=== PATIENT | female | born 1995 | race Hispanic/Latino ===

== ENCOUNTER → 2017-01-02 | Outpatient (CLI) | payer OTHER | LOC: LAB 11:28 | PROVIDERS: ATTEND Obstetrics & Gynecology Gynecology | DX: N91.2 Amenorrhea, unspecified (principal) | CPT/HCPCS: 36415; 84703 ==

== ENCOUNTER → 2017-01-24 | Outpatient (CLI) | payer OTHER ==
[2017-01-24 10:56] LABS: BASOPHILS # (AUTO) 0.03 10*3/UL; BASOPHILS % (AUTO) 0.3 % (0-1); EOSINOPHILS % (AUTO) 0.6 % (0-8); HEMATOCRIT 38.5 % (37.0-47.0); HEMOGLOBIN 13.2 g/dL (12.0-16.0); IMM GRAN % (AUTO) 0.3 % (0-5); IMM GRAN# (AUTO) 0.03 10*3/UL; LYMPHOCYTES # (AUTO) 1.53 10*3/uL; LYMPHOCYTES % (AUTO) 14.4 % (10-50); MEAN CORPUSCULAR HEMOGLOBIN 30.7 PG (27-31); MEAN CORPUSCULAR HGB CONC 34.3 g/dL (33-37); MEAN PLATELET VOLUME 10.3 FL (7.4-12.2); MONOCYTES # (AUTO) 0.57 10*3/UL (0.3-0.8); MONOCYTES % (AUTO) 5.4 % (5-15); NEUTROPHILS # (AUTO) 8.43 10*3/UL; RDW COEFFICIENT OF VARIATION 12.6 % (11.5-14.5); WHITE BLOOD COUNT 10.65 10^3/uL (4.8-10.8)
[2017-01-24 10:59] LABS: PLATELET MORPHOLOGY COMMENT NORMAL MORPHOLOGY (NORM)
[2017-01-24 11:00] LABS: PRENATAL QUESTION YES (Y)
[2017-01-24 11:44] LABS: HIV ANTIBODY NEGATIVE (N); HIV-1 P24 ANTIGEN NEGATIVE (N)
[2017-01-29 12:44] LABS: HEP B SURFACE AG Negative (Negative)
[2017-01-29 13:44] LABS: RUBELLA IGG INDEX 3.2 (()); SYPHILIS IGG WITH REFLEX Negative (Negative)
== END ==
LOC: MOB LAB 09:46
PROVIDERS: ATTEND Student in an Organized Health Care Education/Training Program
DX: Z34.81 Encounter for supervision of other normal pregnancy, first trimester (principal); Z3A.09 9 weeks gestation of pregnancy
CPT/HCPCS: 36415; 80081; 86900; 86901; 87088

== ENCOUNTER → 2017-01-30 | Outpatient (CLI) | payer OTHER ==
--- NOTE | 2017-01-30 19:35 | DI ---
OBSTETRICAL ULTRASOUND, 01/30/2017 8:52 AM: Clinical History: Verify dates. Previous Exam: None at this facility for this . LMP: 11/22/2016. There is a single live IUP currently in unstable position. Amnionic fluid content is normal. The plac enta is anterior corpus and Grade 0. heart rate is between 179-185 beats/minute and regular. Matthew th ovaries are normal. The yolk sac is visualized. CRL measurement is 25 mm. This measurement corresp onds to an EGA value of 9 weeks 2 days. The US EDC is 09/02/2017. EDC by LMP is 08/29/2017. Readin. Single live fetus with unstable presentation and normal amniotic fluid content. Placenta is anter ior corpus and grade 0. 2. The composite EGA is 9 weeks 2 days with an ultrasound EDC of 09/02/2017.
== END ==
LOC: US 08:48
PROVIDERS: ATTEND Student in an Organized Health Care Education/Training Program
DX: Z36 Encounter for antenatal screening of mother (principal)
CPT/HCPCS: 76801

== ENCOUNTER → 2017-04-15 | Outpatient (CLI) | payer OTHER ==
--- NOTE | 2017-04-15 14:53 | DI ---
US OB GTE 14 WEEKS,04/15/2017 9:15 AM: Clinical History: anatomic survey Previous Exam: None at this facility. Findings: Multiple grayscale and color Doppler sonographic images are obtained through the pelvis demonstrating a single live intrauterine gestation in vertex presentation. Amniotic fluid level is within normal l imits. There is normal motion of the limbs. Normal detected Doppler heart tones measure 134 beats per minute. There are normal respirations identified. The placenta is posterior without visible defects. anatomic survey is within normal limits. Estimated gestational age is determined by a composite of biparietal diameter, head circumference, ab dominal circumference and femur length yielding an estimated gestational age by ultrasound of 20 week s zero days. Estimated weight is 334 g (53rd percentile). Impression: Single live intrauterine gestation with size equal to dates. Unremarkable survey.
== END ==
LOC: US 09:12
PROVIDERS: ATTEND Student in an Organized Health Care Education/Training Program
DX: Z36 Encounter for antenatal screening of mother (principal); Z3A.20 20 weeks gestation of pregnancy
CPT/HCPCS: 76805

== ENCOUNTER → 2017-06-11 | Outpatient (CLI) | payer OTHER ==
[2017-06-11 15:04] LABS: HEMATOCRIT 36.3 % (37.0-47.0); HEMOGLOBIN 12.2 g/dL (12.0-16.0); MEAN CORPUSCULAR HEMOGLOBIN 31.1 PG (27-31); MEAN CORPUSCULAR HGB CONC 33.6 g/dL (33-37); MEAN CORPUSCULAR VOLUME 92.6 FL (81-99); MEAN PLATELET VOLUME 9.5 FL (7.4-12.2); RED BLOOD COUNT 3.92 10^6/uL (4.20-5.40)
== END ==
LOC: LAB 13:42
PROVIDERS: ATTEND Obstetrics & Gynecology
DX: Z36 Encounter for antenatal screening of mother (principal); Z3A.28 28 weeks gestation of pregnancy
CPT/HCPCS: 36415; 82950; 85027

== ENCOUNTER 2017-08-26 06:04 | Inpatient (IN) ==
[~2017-08-26 06:04] MED LIST: Lactated Ringers 2,000 ML PRIMARY IV ONE
[2017-08-26] MEDS: Lactated Ringers 1,000 ML PRIMARY IV ONE ×2 (06:40→07:15)
[2017-08-26] MEDS ORDERED: CITRIC ACID/SODIUM CITRATE 30 ML CUP PO ONE (06:52)
[2017-08-26] MEDS ORDERED: CefOXitin Inj 2 GM in Sodium Chloride 0.9% 100 ML IV ONE (06:52)
[2017-08-26] MEDS ORDERED: Famotidine Inj 20 MG in Normal Saline Flush 10 ML IVP ONE (06:52)
[2017-08-26] MEDS ORDERED: NORMAL SALINE 10 ML SYRINGE FLUSH IVP PRN ×3 (06:52→12:55)
[2017-08-26] MEDS ORDERED: Metoclopramide Inj 10 MG/2 ML VIAL IV ONE (06:52)
[2017-08-26] MEDS ORDERED: LIDOCAINE W/ SODIUM BICARB 0.5 ML SYR SUBD PRN (06:52)
[2017-08-26 07:00] LABS: Hematocrit [HCT] 38.2 % (37.0-47.0); Hemoglobin [HGB] 12.7 g/dL (12.0-16.0); MEAN CORPUSCULAR HEMOGLOBIN 30.5 PG (27-31); MEAN CORPUSCULAR HGB CONC 33.2 g/dL (33-37); MEAN CORPUSCULAR VOLUME 91.6 FL (81-99); MEAN PLATELET VOLUME 10.4 FL (7.4-12.2); RED BLOOD COUNT 4.17 10^6/uL (4.20-5.40)
[2017-08-26] MEDS ORDERED: Lactated Ringers 1,000 ML PRIMARY IV SCH (07:00)
[2017-08-26] MEDS ORDERED: Oxytocin 20 Units + LR 20 UNIT/1,000 ML BAG IV SCH ×2 (07:00→12:55)
[2017-08-26] MEDS ORDERED: MORPHINE SULFATE/PF 10 MG/10 ML AMPULE ONE (08:50)
[2017-08-26] MEDS ORDERED: ePHEDrine Inj 50 MG/ML AMP ONE (09:11)
[2017-08-26] MEDS ORDERED: OXYTOCIN 10 UNIT/1 ML ONE (09:12)
[2017-08-26] MEDS ORDERED: ONDANSETRON 4 MG/2 ML VIAL ONE ×2 (09:38→12:22)
[2017-08-26] MEDS ORDERED: HYDROmorphone 2 MG/1 ML IVP PRN (09:41)
[2017-08-26] MEDS ORDERED: Prochlorperazine Edisylate Inj 10mg/2ml vial IVP PRN (09:41)
--- NOTE | 2017-08-26 09:41 | CRNA.PROCE ---
Central Neuraxis Block Placemt - - Safety Measures: Time Out Taken - - Type of Block: Subarachnoid Reason for Block: Surgical Moniters Used During Block: EKG, SPO2, NIBP Positioning: Sitting Skin Prep Used: ChloroPrep Draped: No Skin Infiltration - Enter Amount Used in Comment Field: 1% Xylocaine (mL): Yes ( skinwheal) Spinal Needle Used: 25 Rita 80 mm Local Anesthetic - Enter Amount Used in Comment Field: 0.75 % Bupivacaine with Dextrose (ml): Yes (15mg) Additive Used - Enter Amount Used in Comment Field: Preservative Free Morphine ( mg): Yes (150mcg) Bioclusive Dressing Applied: No - - Additional Details: positive CSF, pos birefringence Anesthesia Time - Other Weight: 61.326 kg Height: 5 ft Body Mass Index (BMI): 26.4
[2017-08-26] MEDS ORDERED: KETOROLAC 30 MG/1 ML VIAL ONE (10:06)
--- NOTE | 2017-08-26 10:56 | CRNA.PROGR ---
Anesthesia Time - - Start date: 08/26/17 End date: 08/26/17 - Procedure/Recovery Time Anesthesia : Time In: 09:01 Anesthesia : Time Out: 10:43 Anesthesia : Total Time: 102 - Total Anesthesia Time Total Anesthesia Time (minutes): 102 - Other Weight: 61.326 kg Height: 5 ft Body Mass Index (BMI): 26.4 Obstetrics: C/S anesthesia only
[2017-08-26] MEDS ORDERED: D5-LR 1,000 ML PRIMARY IV ONE (12:04)
[2017-08-26] MEDS: D5-LR 1,000 ML PRIMARY IV SCH ×2 (12:05→20:30)
[2017-08-26] MEDS: ONDANSETRON 4 MG/2 ML VIAL IVP PRN ×2 (12:20→19:50)
[2017-08-26] MEDS ORDERED: Nalbuphine Inj 20 MG/ML Ampule IVP PRN (12:55)
[2017-08-26] MEDS ORDERED: diphenhydrAMINE 25 MG CAPSULE PO PRN (12:55)
[2017-08-26] MEDS ORDERED: CALCIUM CARBONATE 500 MG (TUMS) CHEWABLE TABLET PO PRN (12:55)
[2017-08-26] MEDS ORDERED: LANOLIN HPA 40 GM TUBE TOPICAL PRN (12:55)
[2017-08-26] MEDS ORDERED: oxyCODONE-ACETAMINOPHEN 5-325 TAB PO PRN (12:55)
[2017-08-26] MEDS ORDERED: diphenhydrAMINE 50 MG/1 ML VIAL IV PRN (12:55)
[2017-08-26] MEDS ORDERED: Naloxone Inj 0.01 MG, Sodium Chloride 0.9% vial 1 ML IVP PRN ×2 (12:55)
[2017-08-26] MEDS ORDERED: Famotidine Inj 20 MG in Normal Saline Flush 10 ML IVP PRN (12:55)
--- NOTE | 2017-08-26 13:17 | OB.OP.NOTE ---
Operative Report Surgeon: Beck Lewis Delivery Architect: Jim Mancini MD Anesthesia Type: Regional Anesthesia Provider: Raúl Owens CRNA Surgery Date: 08/26/17 Preoperative Diagnosis: at 39 weeks gestation. H/o 4th degree tear Postoperative Diagnosis: Normal uterus, ovaries, fallopian tubes. 6lb 14oz male infant, apgars 8,9 Procedure: primary LTCS Estimated Blood Loss (mL): 700 Fluids: 1L LR Complications: none apparent Indications for the Procedure: History of 4th degree tear with first delivery Description of Procedure: The patient was taken to the operating room where spinal anesthesia was found to be adequate. Simms catheter was placed. She was then prepared and draped in the normal sterile fashion in the dorsal supine position with a leftward tilt. A Pfannenstiel skin incision was then made with the scalpel and carried through to the underlying layer of fascia with Bovie. The fascia was incised in the midline and the incision extended laterally with the Bovie. The superior aspect of the fascial incision was then grasped with Juana clamps, elevated and the underlying rectus muscles dissected off bluntly. Attention was then turned to the inferior aspect of this incision which in a similar fashion was grasped with Juana clamps and the rectus muscles dissected off both bluntly and with the Bovie. The rectus muscle was then in the midline , and the peritoneum identified, tented up, and entered in blunt fashion. The peritoneal incision was then extended superiorly and inferiorly with good visualization of the bladder. The Brendan retractor was then inserted and the vesicouterine peritoneum was identified. The lower uterine segment incised in the transverse fashion with the scalpel. The uterine incision was then extended laterally blunt fashion. The infant's head was delivered atraumatically. The nose and mouth were suctioned with the bulb suction. Cord clamping was delayed approx 30 seconds and then clamped and cut. The was handed off to the awaiting nurse. Cord gases and cord blood were sent for analysis. The placenta was then removed manually; the uterus exteriorized, and cleared of all clots and debris. The uterine incision was repaired with 0 Vicryl in a running, locked fashion. A second layer of the same suture was used to obtain excellent hemostasis. The peritoneal cavity was then copiously irrigated with warm saline. The uterus was returned to the abdomen. The paracolic gutters were copiously irrigated with warm saline and a second look at the uterus incision continued to reveal excellent hemostasis. The peritoneum was closed with 3-0 Vicryl. The fascia reapproximated with 0 vicryl in a running fashion. The subcutaneous space was irrigated copiously with warm saline and then closed first with 3-0 Vicryl and then more superficially with stratafix absorbable sutures. The skin was reapproximated with Steri-Strips and a Silverlon dressing applied. Fundal massage was completed with no clots in vaginal vault. The patient tolerated the procedure well. Sponge, lap, and needle counts were correct x2. Mefoxin was given preoperatively less than one hour prior to incision time. The patient was taken to the recovery room in stable condition. Plan: Patient and baby tolerated procedure well, mom to PACU in stable condition. Admit for routine cares.
[2017-08-26] MEDS: KETOROLAC 15 MG/1 ML VIAL IVP PRN ×2 (17:02→23:03)
[2017-08-27] MEDS: KETOROLAC 15 MG/1 ML VIAL IVP PRN ×2 (04:54→12:40)
[2017-08-27 05:34] LABS: Hematocrit [HCT] 29.9 % (37.0-47.0); Hemoglobin [HGB] 9.8 g/dL (12.0-16.0); MEAN CORPUSCULAR HEMOGLOBIN 30.5 PG (27-31); MEAN CORPUSCULAR HGB CONC 32.8 g/dL (33-37); MEAN CORPUSCULAR VOLUME 93.1 FL (81-99); MEAN PLATELET VOLUME 10.3 FL (7.4-12.2); RED BLOOD COUNT 3.21 10^6/uL (4.20-5.40)
[2017-08-27] MEDS: Senna/Docusate Tab 1 TAB TAB PO SCH ×2 (09:31→21:08)
[2017-08-27] MEDS: Prenatal Multivitamin Tab 1 TAB TAB PO SCH (09:31)
--- NOTE | 2017-08-27 10:43 | OB.PROGRES ---
Subjective Post Op Day: 1 Pain Management: toradol, last dose this morning Walker Catheter: No Diet: Regular (but has had emesis) Iron Feeding Method: Exculsively Ambulating: Yes Concerns / Additional Information: Demi was d/c'd around 0500, she has been up and ambulating. Voided 500 cc since walker was pulled. Did have some emesis with lunch and dinner yesterday. Has not required anything for pain other than toradol (recieved duramorph in spinal). Breast feeding. States she is doing well, feels much better than she expected too. Objective - General General Appearance: POSITIVE: No Acute Distress, Cooperative - Cardiovacular Cardiovascular Exam: POSITIVE: RRR Edema: No Pedal Edema Extremities: Negative Patrick's - Bilaterally - Respiratory Respiratory Exam: POSITIVE: Clear to Auscultation - Bilaterally, Breathing Non Labored - Abdomen Bowel Sounds: Hypoactive Abdominal Wound Assessment: Silverlone Dressing - Fundus/Lochia/Perineum Uterus Consistency: Firm Uterus Position: POSITIVE: At Umbilicus Assesstment / Plan (1) Status post primary low transverse section Current Visit: Yes Status: Acute Support Text: 22 yo G4 now P2022, POD 1 s/p primary LTCS (h/o 4th degree tear) -Pain well controlled currently, transition to po pain meds -Breast feeding, doing well. contaminated land consultant to come by today. -Postop anemia - Hg 12.7->9.7, asymptomatic -Leukocytosis this morning to 19k, but vital signs stable, no concerning symptoms. Will monitor closely, recheck CBC in am. -Anticipate d/c home tomorrow.
[2017-08-27] MEDS: IBUPROFEN 800 MG TABLET PO PRN (17:50)
--- NOTE | 2017-08-27 18:32 | CRNA.PROGR ---
Anesthesia Note - Progress Notes Anesthesia Progress Note: Pt sitting up nursing her new born, She has been up ambulating and into the shower. She is tolerating a regular diet. She states that her pain is well under control. She denies any residual problems from the SAB. Current VS are stable. Vital Signs - Last Taken Temperature 98.0 F 08/27/17 17:00 Pulse Rate 106 H 08/27/17 17:00 Respiratory Rate 16 08/27/17 17:00 Blood Pressure 110/66 08/27/17 17:00 Pulse Ox 98 08/27/17 17:00
[2017-08-28 00:30] VITALS: RESP 16
[2017-08-28] MEDS: IBUPROFEN 800 MG TABLET PO PRN ×2 (00:30→08:59)
[2017-08-28 05:17] VITALS: O2SAT 98
[2017-08-28 05:30] LABS: BASOPHILS # (AUTO) 0.02 10*3/UL; BASOPHILS % (AUTO) 0.1 % (0-1); EOSINOPHILS # (AUTO) 0.11 10*3/UL; EOSINOPHILS % (AUTO) 0.8 % (0-8); Hematocrit [HCT] 29.3 % (37.0-47.0); Hemoglobin [HGB] 9.6 g/dL (12.0-16.0); LYMPHOCYTES # (AUTO) 2.81 10*3/uL; MEAN CORPUSCULAR HEMOGLOBIN 30.9 PG (27-31); MEAN CORPUSCULAR HGB CONC 32.8 g/dL (33-37); MEAN CORPUSCULAR VOLUME 94.2 FL (81-99); MEAN PLATELET VOLUME 10.6 FL (7.4-12.2); MONOCYTES # (AUTO) 1.49 10*3/UL (0.3-0.8); MONOCYTES % (AUTO) 10.8 % (5-15); NEUTROPHILS # (AUTO) 9.36 10*3/UL; NEUTROPHILS % (AUTO) 67.6 % (50-80); RED BLOOD COUNT 3.11 10^6/uL (4.20-5.40)
[2017-08-28 05:35] LABS: PLATELET MORPHOLOGY COMMENT NORMAL MORPHOLOGY (NORM); RBC MORPHOLOGY COMMENT NORMAL MORPHOLOGY (NORM); WBC MORPHOLOGY COMMENT NORMAL MORPHOLOGY (NORM)
--- NOTE | 2017-08-28 07:55 | DCSUMMARY ---
Hospitalization Summary Admit Date: 08/26/17 Discharge Date: 08/28/17 Primary Diagnosis:: s/p primary LTCS Secondary Diagnosis:: 22 yo G4 now P2022 delivered a TAGA male infant at 39 0/7 weeks gestation via primary LTCS for h/o 4th degree perineal laceration Primary Surgery and Date: 08/26/17 Delivery Type: Hospital Course: 22 yo G4 now P2 admitted at 39 0/7 for scheduled primary LTCS. was uncomplicated. Postop course uncomplicated. / Postop Complications: none apparent Complications: none apparent Exam - Vitals Vital Signs: Vital Signs Temperature 97.9 F Temperature Source Oral Pulse Rate [Pulse Oximeter] 98 Pulse Rate [Apical] 93 Pulse Rate 84 Respiratory Rate 16 Blood Pressure [Left Arm] 82/53 Blood Pressure 120/79 Pulse Ox 98 Oxygen Flow Rate 1 Oxygen Delivery Method Room Air Height 5 ft Weight 135 lb 3.2 oz - General General Appearance: No Acute Distress, Cooperative - Head Head Exam: Normal Inspection - Eye Eye Exam: POSITIVE: Normal Appearance - ENT ENT Exam: POSITIVE: Normal Exam - Neck Neck Exam: Normal Inspection - Respiratory Respiratory Exam: POSITIVE: Clear to Auscultation - Bilaterally, Breathing Non Labored - Cardiovascular Cardiovascular Exam: POSITIVE: RRR - GI/Abdominal GI/Abdominal Exam: POSITIVE: Normal Bowel Sounds Additional GI/Abdominal Exam Details: U-1, firm - Extremities Extremities Exam: POSITIVE: No Edema Present - Neurological Neurological Exam: POSITIVE: Alert, Oriented x 3 - Psychiatric Psychiatric Exam: POSITIVE: Normal Affect, Normal Mood - Integumentary Integumentary Exam: POSITIVE: Normal Color Patient Problems - Patient Problem List (1) Status post primary low transverse section Current Visit: Yes Status: Acute Code(s): Z98.891 - History of uterine scar from previous surgery Support Text: POD 2. -Pain well controlled with po ibuprofen -Breast feeding well -Mind asymptomatic postop anemia -D/c to home today, f/u with me in 1 week for incision check -Rx for percocet 5/325, ibuprofen 800mg, sennakot, PNV sent in Category: Medical
[2017-08-28 08:04] VITALS: BP 102/70; TEMP 98.1
[2017-08-28] MEDS: Prenatal Multivitamin Tab 1 TAB TAB PO SCH (08:58)
[2017-08-28] MEDS: Senna/Docusate Tab 1 TAB TAB PO SCH (08:58)
== END 2017-08-28 10:05 | disposition home or self-care (01) | DRG 941 ==
LOC: OBOR 06:04 → OBIP 13:11
PROVIDERS: ADMIT Student in an Organized Health Care Education/Training Program; ATTEND Student in an Organized Health Care Education/Training Program